=== PATIENT | female | born 1990 | race Caucasian/White ===

== ENCOUNTER 2020-08-25 01:30 | Emergency (ER) | payer OTHER ==
[~2020-08-25] VITALS: Ht 165.1 cm; Wt 90.9 kg
--- NOTE | 2020-08-25 02:18 | REPVR ---
PROCEDURE INFORMATION: Exam: XR Left Toe(s) Exam date and time: 08/25/2020 2:07 AM Age: 29 years old Clinical indication: Pain and injury or trauma; Fall; Blunt trauma; Toes; Left; Additional info: Fall pain. PT states pain at pip joint of first digit. TECHNIQUE: Imaging protocol: XR Left toes. Views: Minimum 2 views. COMPARISON: No relevant prior studies available. FINDINGS: Bones/joints: Slightly displaced fracture involving the lateral articular margin of the distal phalanx of the great toe. There appears to be some impaction of the lateral articular surface of the distal phalanx as well. Soft tissues: Soft tissue swelling of the great toe. IMPRESSION: 1. Mildly depressed impaction fracture of the lateral aspect of the articular surface of the distal phalanx of the great toe. There is a slightly displaced longitudinal component of the lateral articular margin. 2. Soft tissue swelling of the great toe. Electronically signed by: Emre Hebert On 08/25/2020 02:17:29 AM
[2020-08-25 02:35] VITALS: BP 125/74
== END 2020-08-25 02:44 | disposition home or self-care (01) ==
LOC: M ED 01:30
DX: S90.112A Contusion of left great toe without damage to nail, initial encounter (principal); W19.XXXA Unspecified fall, initial encounter; Y92.018 Other place in single-family (private) house as the place of occurrence of the external cause